=== PATIENT | female | born 1970 ===

== ENCOUNTER 2025-06-08 09:36 | Emergency (ER) | payer OTHER, SELFPAY ==
--- NOTE | 2025-06-08 | ECG_ITS ---
Test Reason : CP Blood Pressure : */* mmHG Vent. Rate : 82 BPM Atrial Rate : 82 BPM P-R Int : 170 ms QRS Dur : 82 ms QT Int : 358 ms P-R-T Axes : 35 7 11 degrees QTcB Int : 418 ms Normal sinus rhythm Normal ECG No previous ECGs available Referred By: Generic ED Physician Electronically Signed By: JAY JAY BOWSER MD
--- NOTE | ~2025-06-08 | XR_ITS ---
EXAMINATION: XR CHEST 1 VIEW HISTORY: lump on chest COMPARISON: There are no prior studies available for comparison. FINDINGS: A single PA view of the chest is submitted. The lungs are expanded and clear. There is no pleural effusion, pneumothorax, or pulmonary vascular congestion. The heart is normal in size. The bones are intact. XR/XR chest 1V IMPRESSION: Clear lungs. Electronically signed by: Giancarlo Bailey MD 06/08/2025 10:40 AM EDT
[2025-06-08 10:05] VITALS: BP 159/82; PULSE 90; RESP 20; TEMP 37; O2SAT 98; BMI 27.6
--- NOTE | 2025-06-08 10:13 | ED_ITS ---
HPI - General Adult General Chief complaint: General Medical Stated complaint: Chest pain, lower back pain Time Seen by Provider: 06/08/25 10:51 Source: patient Mode of arrival: ambulatory Limitations: no limitations History of Present Illness ED Provider: Fredy Ambriz HPI narrative: 54 yold male with pmh of HTN presents to the ED for left upper chest dime sized mass that has been present for months. patient denies any breast swelling, nipple discharge, fever, chills, redness, pleurisy, weight loss, night sweats, chest pain, fever, or chills. Related Data Previous Rx's ?Medication ?Instructions ?Recorded naproxen 500 mg tablet 500 mg PO BID PRN pain #14 t abs 06/08/25 Allergies Allergy/AdvReac Type Severity Reaction Status Date / Time coconut Allergy Anaphylaxis Verified 06/08/25 10:06 Review of Systems 2 Review of Systems: left chest wall mass Yes all other systems are reviewed and are negative Physical Exam ED Vital Signs: Vital Signs - 24 hr 06/08/25 10:05 Temperature 98.6 F Pulse Rate 90 Respiratory Rate 20 Blood Pressure 159/82 H Pulse Oximetry 98 Oxygen Delivery Method Room Air BMI result Body Mass Index 27.6 Const General: cooperative, healthy appearing, comfortable, no acute distress, well developed, alert, awake and Physically active Orientation/consciousness: patient oriented x3 HENMT Head: Yes normal to inspection, Yes No palpable skull fracture present, Yes normocephalic and Yes atraumatic Eyes General: appearance normal, both eyes and all related structures Neck Neck: Yes normal visual inspection, Yes full ROM, Yes no lymphadenopathy, Yes no meningeal signs, Yes trachea midline, Yes supple, No anterior neck swelling and No tender Chest Chest/axillae images: 2 1. tender dime sized mass that is non erythamatous or fluctulant. negative for pus discharge, foul odor, redness, rash, lesions, ecchymosis, or deformities. Breast normal. negative for breast swelling, redness, nipple discharge, mass, fluctance, or axillary lympnodes. Resp Effort & Inspection: normal respiratory effort and able to speak in complete sentences Auscultation: clear to auscultation bilaterally Cardio Jugular venous distension: no JVD Heart sounds: S1 normal heart sound present and S2 normal heart sound present GI Inspection: Yes normal to inspection Palpation (GI): Soft to palpation, not firm, nontender, no guarding and not rigid General: Yes no CVA tenderness Back/Spine/Pelvis Back: no CVA tenderness and No back tenderness Skin General skin exam: no rashes or lesions noted, elasticity normal and turgor normal Neuro General: patient oriented x3, gait normal, tone normal, moves all extremities, Normal light touch and pain sensation, no meningeal signs, no focal motor deficits and CN's II-XI intact bilaterally Extrem General: Yes normal to inspection, Yes full ROM and Yes capillary refill normal Psych Appearance: grossly normal, well kempt and not disheveled Course Course Course Narrative: RME: 54 yold female presents to the ED lump on left chest/breast pain and putting vix on the site thinking it will go away. Patient states no shortness of breath. EKG was ordered by nurse. CHest xray ordered Medical Decision Making Medical Decision Making [facility] Narrative: 54-year-old female presents to the ED for small lump on left upper chest the size of a dime that is slightly tender. Negative for erythema, pus discharge, foul odor, or fluctuance. Rest of chest exam benign. Rest of left breast exam negative for any swelling, redness, nipple discharge or palpable mass. Negative for any palpable axillary lymph nodes. Right chest breasts normal. EKG negative STEMI non diagnostic. Chest x-ray negative for any obvious mass in the lungs. Labs troponin negative. Patient to follow up with breast surgeon surgery and primary care. Not suspecting SD, PE, CHF, Abscess, Pneumonia, or any life treathening etiology. Differential Diagnosis Differential Diagnoses: The differential diagnosis associated with the presentation includes (Breast abscess, pneumonia, SD) Admission/Observation Consideration of admission/observation: Escalation of care including admission/observation considered Lab Data [facility] Lab Attestation statement: I reviewed the patient's lab results. 06/08/25 10:58 06/08/25 10:58 Labs: Lab Results 06/08/25 Range/Units 10:58 WBC 6.3 (4.8-10.8) X10*3/uL RBC 4.51 (4.20-5.50) X10*6/uL Hgb 13.7 (12.0-16.0) g/dl Hct 40.5 (37.0-47.0) % MCV 89.8 (80.0-98.0) fL MCH 30.4 (27.0-33.0) pg MCHC 33.8 (31.0-35.0) g/dl RDW 13.4 (11.0-16.0) % Plt Count 262 (160-400) X10*3/uL MPV 11.2 (9.4-12.3) fL Immature Gran % (Auto) 0.2 (0.0-0.4) % Neut % (Auto) 42.8 L (45-73) % Lymph % (Auto) 42.0 H (20-40) % Beaver % (Auto) 5.3 (2-11) % Eos % (Auto) 9.1 H (0-4) % Baso % (Auto) 0.6 (0-2) % Lymph # (Auto) 2.6 (1.2-4.9) X10*3/uL Beaver # (Auto) 0.3 (0.1-1.2) X10*3/uL Eos # (Auto) 0.6 H (0.0-0.4) X10*3/uL Baso # (Auto) 0.0 (0.0-0.2) X10*3/uL Abs Immat Gran (auto) 0.01 (0.00-0.03) X10*3/uL Absolute Neuts (auto) 2.7 (2.0-8.3) x10*3/uL Absolute Nucleated RBC 0.000 (0.0-0.012) X10*3/uL Nucleated RBC % (auto) 0.0 (0.0-0.2) /100WBC Sodium 143 (135-145) mmol/L Potassium 4.7 (3.3-5.1) mmol/L Chloride 108 (96-108) mmol/L Carbon Dioxide 26 (22-29) mmol/L Anion Gap 14 (12-20) BUN 15 (9-16) mg/dL Creatinine 0.79 (0.5-1.4) mg/dL Estim Creat Clear Calc 92.7 Estimated GFR > 60 Random Glucose 118 H (60-115) mg/dL Calcium 9.3 (8.4-10.2) mg/dL Total Bilirubin 0.5 (0.0-1.0) mg/dL AST 25 (5-31) U/L ALT 27 (0-31) U/L Alkaline Phosphatase 75 (39-117) U/L Troponin I High Sens < 2.7 (<3.5-17.0) ng/L Total Protein 7.9 (6.5-8.0) g/dL Albumin 4.6 (3.5-5.0) g/dL Independent Interpretation I performed an independent interpretation of an: EKG (Nondiagnostic) Independent Historian Clinical information obtained from an independent historian. History obtained from or confirmed by: Other (patient) Prescription Management I considered prescription management with: Pain Medication Discharge Plan Discharge Clinical Impression: Chest wall pain, Lipoma of anterior chest wall, Mass of soft tissue of chest Patient Disposition: Home, Self-Care Instructions: Chest Pain (ED), Chest Wall Pain (ED), Lipoma (ED), Soft Tissue Mass (ED) Additional Instructions: You will need follow-up with primary care provider, surgeon, and woman health. Return to the ED immediately for any worsening increased size of small lump, pain, redness, pus discharge, breast swelling, nipple discharge, redness, axillary lumps, weight loss, fever, chills, shortness of breath, or any other concerning symptoms. Your labs EKG chest x-ray came back reassuring. Prescriptions: New naproxen 500 mg tablet 500 mg PO BID PRN (Reason: pain) Qty: 14 0RF Referrals: [facility] [place] General Surgeons [Provider Group, General Surgery] - 2 days Referral Note: Anterior chest wall mass. Lipoma? Breast evaluation Clinical Impression: Mass of soft tissue of chest; Chest wall pain; Lipoma of anterior chest wall [facility] [place] Women's Services [Provider Group, LEAD DESIGNER] - 2 days Referral Note: Breast evaluation. Chest wall mass? Clinical Impression: Mass of soft tissue of chest; Lipoma of anterior chest wall Group,[facility] [Primary Care Provider, Primary Care] - 2 days Referral Note: Upper left chest wall soft tender mass. Clinical Impression: Chest wall pain Stand Alone Forms: Work/School Release Interventions: ED Discharge Assessment Last Done: 06/08/25 12:41 Discharge Date/Time: 06/08/25 12:43 Print Language: Mauritanian
[2025-06-08 11:01] LABS: MANUAL DIFF FLAG NO
[2025-06-08 11:02] LABS: Hematocrit 40.5 % (37.0-47.0); Hemoglobin 13.7 g/dl (12.0-16.0); Imm Gran Abs Auto 0.01 X10*3/uL (0.00-0.03); Imm Gran Pct Auto 0.2 % (0.0-0.4); Lymphocytes Absolute Auto 2.6 X10*3/uL (1.2-4.9); Mean Corpuscular HGB Conc 33.8 g/dl (31.0-35.0); Mean Corpuscular Hemoglobin 30.4 pg (27.0-33.0); Mean Corpuscular Volume 89.8 fL (80.0-98.0); NRBC Abs Auto 0.000 X10*3/uL (0.0-0.012); NRBC Pct Auto 0.0 /100WBC (0.0-0.2); Platelet Count 262 X10*3/uL (160-400); Red Blood Count 4.51 X10*6/uL (4.20-5.50); White Blood Count 6.3 X10*3/uL (4.8-10.8)
[2025-06-08 11:16] LABS: Alanine Aminotransferase 27 U/L (0-31); Albumin Level 4.6 g/dL (3.5-5.0); Alkaline Phosphatase 75 U/L (39-117); Anion Gap 14 (12-20); Aspartate Amino Transferase 25 U/L (5-31); Blood Urea Nitrogen 15 mg/dL (9-16); Calcium 9.3 mg/dL (8.4-10.2); Carbon Dioxide 26 mmol/L (22-29); Chloride 108 mmol/L (96-108); Creatinine Clr Calc Pharmacy 92.7; Estimated Glomerular Filt Rate > 60; Potassium 4.7 mmol/L (3.3-5.1); Sodium 143 mmol/L (135-145); Total Protein 7.9 g/dL (6.5-8.0)
[2025-06-08 11:23] LABS: Troponin-I High Sensitivity < 2.7 ng/L (<3.5-17.0)
[2025-06-08 12:41] VITALS: BP 159/82; PULSE 90; RESP 20; TEMP 37; O2SAT 98
--- OUTSIDE RECORDS SUMMARY | 2025-06-08 13:46 | XMS_ITS | Clinical Summary ---
Author Organization [facility] Address [address] [place] [address] Care Team Providers Care Equities Analyst Name Role Phone Unavailable Primary Care Provider Unavailabl e Allergies No known active allergies Medications Medication Sig Dispensed Refills Start Date End Date Status diazePAM (VALIUM) tablet 5 mg Take 1 tablet (5 mg total) by mouth once as needed for anxiety (for 30 minutes prior to procedure) for up to 1 dose. 1 tablet 0 09/25/2021 Active Family History Medical History Relation Name Comments No Sig Med Hx Father No Sig Med Hx Mother Relation Name Status Comments Father Mother Social History Tobacco Use Types Packs/Day Years Used Date Smoking Tobacco: Former Smokeless Tobacco: Never Alcohol Use Standard Drinks/Week Comments Not Currently 0 (1 standard drink = 0.6 oz pur e alcohol) Sex and Gender Information Value Date Recorded Sex Assigned at Not on file Gender Identity Not on file Sexual Orientation Not on file Job Start Date Occupation Industry Not on file Not on file Not on file Last Filed Vital Signs Vital Sign Reading Time Taken Comments Blood Pressure 128/88 09/25/2021 9:26 AM EST Pulse 98 09/25/2021 9:26 AM EST Temperature 36.7 C (98 F) 09/25/2021 9:26 AM EST Respiratory Rate - - Oxygen Saturation 100% 09/25/2021 9:26 AM EST Inhaled Oxygen Concentration - - Weight - - Height 170.2 cm (5' 7 ) 09/25/2021 10:36 AM EST Body Mass Index - - Plan of Treatment Health Maintenance Due Date Last Done Comments Hepatitis B Vaccines (1 of 3 - 3-dose series) 1971 Hepatitis C Screening 1971 Depression Screening 1983 Preventative Health Evaluation 1989 Cervical Cancer Screening (Pap Smear) 1992 Colon Cancer Screening (Colonoscopy) 2016 Breast Cancer Screening (Mammogram) 2021 Shingrix-Zoster Vaccine (1 o f 2) 2021 COVID-19 Vaccine (3 - 2024-2 6 season) 2025 02/09/2021, 01/19/2021 Influenza Vaccine (#1) 2025 06/23/2019 DTap / Tdap / Td (2 - Td or Tdap) 05/27/2028 05/27/2018 Pneumococcal Vaccine Aged Out No long er eligible based on patient's age to complete this topic RSV Ped < 20 months Aged Out No longe r eligible based on patient's age to complete this topic
--- OUTSIDE RECORDS SUMMARY | 2025-06-08 13:46 | XMS_ITS | Clinical Summary ---
Author Organization [facility] Address [address] [place] [address] Phone Care Team Providers Care Inventory Control Supervisor Name Role Phone Massiel Hernandez MD Primary Care Provider Allergies Active Allergy Reactions Criticality Noted Date Comments Coconut 11/14/2021 Coconut (Cocos Nucifera) Allergy Skin Test Hives Other Runny nose 11/14/2017 Seasonal Runny nose/rhinitis Medications ARIPiprazole (ABILIFY) 10 mg tablet Take 10 mg by mouth daily. Active busPIRone (BUSPAR) 10 mg tablet Take 1 Tablet by mouth daily. 07/18/20 22 Active DULoxetine (CYMBALTA) [address] capsule Take 1 capsule (60 mg total) by mouth 1 (one) time each day. Per psych 12/17/19 19 Active EPINEPHrine (EpiPen 2-Yusef) 0.3 mg/0.3 mL injection INJECT 1 PEN INJECTOR SINGLE DOSE NEEDED 09/25/19 24 Active aluminum-magnes ium hydroxide 200-200 mg/5 mL suspension Take 10 mL by mouth every 6 hours as needed for Indigestion. 02/26/20 24 Active pantoprazole (PROTONIX) 40 mg EC tablet Take 1 Tablet by mouth 2 times daily (before meals). Take on an empty stomach, wait 30 mins and then eat to activate the medication before breakfast and supper 12/03/19 24 Active miscellaneous medical supply misc Respiratory Therapy Supplies (Adult Mask Large) [facility] [place] by Does not apply route continuous. 05/20/20 23 Active zolpidem (AMBIEN) 10 mg tablet Take 1 Tablet by mouth at bedtime as needed for Insomnia. Per psych for insomnia 07/11/20 23 Active estradioL (CLIMARA) 0.05 mg/[address] 1 patch on the skin every 14 (fourteen) days. Active docusate calcium (SURFAK) 240 mg capsule Take 1 capsule (240 mg total) by mouth 1 (one) time each day. 90 capsule 1 08/11/20 24 Active cyclobenzaprine (FLEXERIL) 10 mg tabletIndicatio ns:Low back pain, unspecified back pain laterality, unspecified chronicity, unspecified whether sciatica present Take 1 tablet (10 mg total) by mouth 2 (two) times a day if needed for muscle spasms for up to 5 days. 10 tablet 12/25/19 25 Active fluticasone propionate (FLONASE) 50 mcg/actuation nasal spray ADMINISTER 1 SPRAY INTO EACH NOSTRIL 1 (ONE) TIME EACH DAY. BEFORE 1ST USE & CLEAN TIP/REPLACE CAP AFTER 32 mL 04/06/20 25 Active simethicone 250 mg capsuleIndicati ons:Gastroesoph ageal reflux disease, unspecified whether esophagitis present Take three times daily as needed for indigestion 90 capsule 1 04/13/20 25 Active gabapentin (NEURONTIN) 600 mg tablet Take 1 tablet (600 mg total) by mouth 2 (two) times a day. 180 tablet 1 04/13/20 25 Active ibuprofen (ADVIL,MOTRIN) 600 mg tablet Take 1 tablet (600 mg total) by mouth every 6 (six) hours if needed for moderate pain. for pain 90 tablet 1 04/13/20 25 Active diclofenac (VOLTAREN) 1 % topical gel APPLY 1 GRAM TOPICALLY 2 TIMES DAILY. 100 g 05/31/20 25 Active sucralfate (CARAFATE) 1 gram tablet Take 1 tablet (1 g total) by mouth 4 (four) times a day (before meals and nightly). Take 1 hour before meals and at bedtime 360 each 03/02/20 25 025 diclofenac (VOLTAREN) 1 % topical gel APPLY 1 GRAM TOPICALLY 2 TIMES DAILY. 100 g 04/12/20 25 025 Discontinued Active Problems Problem Noted Date Diagnosed Date Swallowing difficulty 05/29/2024 Throat pain 05/29/2024 Prediabetes 09/19/2021 Venous insufficiency of left lower extremity Overview (05/29/2024): Dr Blanco Grade I hemorrhoids 10/14/2019 Spondylosis 05/13/2019 Multiple lipomas 12/18/2018 Hyperopia with astigmatism and presbyopia, bilat eral 05/28/2018 GERD (gastroesophageal reflux disease) 7 Overview (05/29/2024): With erosive esophagitis, chronic gastritis Duodenal erosion 10/04 NSAIDs Neck arthritis 06/14/2017 Gallstones 06/05/2017 Overview (05/29/2024): 06/18- Gen surgery could not contact, letter sent. Auditory hallucination 05/29/2017 Visual hallucination 05/29/2017 Anxiety 12/07/2016 Carpal tunnel syndrome, bilateral 12/07/2016 Overview (05/29/2024): 2016 EMG from [facility]: Mild focal neuropathy at the left wrist suggestive of carpal tunnel syndrome. The right nerve studies were normal. Surgery planned for left CTR 01/18 Depression 12/07/2016 Overview (05/29/2024): Follows with Janienagustina [facility] Fibromyalgia 12/07/2016 Subcutaneous nodules 12/07/2016 Overview (05/29/2024): Lower extremities multiple, eval by vascular no varicose veins 07/2016 Encounters Date Type Department Care Team Description 05/31/2025 11:00 AM EDT Office Visit Adult Medicine [facility] [address] [place] [phone] Massiel Hernandez MD Breast pain, left (Primary Dx) 04/13/2025 2:30 PM EDT Office Visit Adult Medicine [facility] [address] [place] [phone] Saleem Mondragon PA Fibromyalgia (Primary Dx); Gastroesophageal reflux disease, unspecified whether esophagitis present; Anxiety; Right ankle pain, unspecified chronicity from Last 3 Months Immunizations Immunization Administration Dates Next Due Influenza Quadravalent, MDCK , 0.5ml, preservative free (Flucelvax) 6mo and older 06/23/2019 Pfizer SARS-CoV-2 COVID-19, mRNA, LNP-S, preservative free 02/09/2021,01/19/2021 Tdap Tetanus diptheria acell ular pertussis (Boostrix; Adacel) 7yo and older 05/27/2018 Surgical History Surgery Date Site/Laterality Comments CERVICAL BIOPSY W/ LOOP ELEC TRODE EXCISION ? 2011 PROCEDURE: HISTORICAL CONE BIOPSY; COMMENT: cervical cancer? cone biopsy? in [place] BREAST BIOPSY PROCEDURE: BX BREAST; PERC NEEDLE CORE W/IMAG GUID; COMMENT: rt COLONOSCOPY 10/14/2019 PROCEDURE: HISTORICAL COLONOSCOPY; COMMENT: internal hemorrhoids UPPER GASTROINTESTINAL ENDOSCOPY 10/14/2019 PROCEDURE: UPPER GI ENDOSCOPY/EXAM; COMMENT: negative/biopsy pending HYSTERECTOMY 05/2020 PROCEDURE: HISTORICAL TOTAL HYSTERECTOMY WITH BSO HERNIA REPAIR 05/2020 PROCEDURE: REPAIR UMBILICAL HERNIA; COMMENT: with cystscopy ESOPHAGOGASTRODUODENOSCOPY 01/15/2022 PROCEDURE: NV EGD TRANSORAL BIOPSY SINGLE/MULTIPLE; COMMENT: retained food otherwise normal, random biopsy with minimal chronic gastritis OTHER SURGICAL HISTORY Bilateral PROCEDURE: NV LIGJ DIVJ & STRIPPING SHORT SAPHENOUS VEIN; COMMENT: CHOLECYSTECTOMY PROCEDURE: HISTORICAL CHOLECYSTECTOMY CHOLECYSTECTOMY PROCEDURE: NV LAPAROSCOPY SURG CHOLECYSTECTOMY Medical History Medical History Date Comments Carpal tunnel syndrome, bilateral DX:Carpal tunnel syndrome, bilateral Depression DX:Depression Fibromyalgia DX:Fibromyalgia Anxiety DX:Anxiety History of gestational diabetes DX:History of gestational diabetes History of ovarian cyst 05/27/2016 DX:Histo ry of ovarian cyst Subcutaneous nodules 07/2016 DX:Subcutan eous nodules; COMMENT: Lower extremities multiple, eval by vascular no varicose veins 07/2016 History of breast lump 12/2015 DX:Histor y of breast lump; COMMENT: R, ref to breast center suspect enlarging cyst History of syncope 08/2015 DX:History of syncope; COMMENT: hold off further workup, suspect more psych related. GERD (gastroesophageal reflux disease) 7 DX:GERD (gastroesophageal reflux disease) Swallowing difficulty DX:Swallow ing difficulty Throat pain DX:Throat pain Cervical spondylosis without myelopathy DX:Cervical spondylosis with out myelopathy Epigastric pain DX:Epigastric pa in Right upper quadrant pain DX:Rig ht upper quadrant pain GERD (gastroesophageal reflux disease) DX:GERD (gastroesophageal reflux disease) Abdominal pain DX:Abdominal loraine n Right upper quadrant pain DX:Rig ht upper quadrant pain Abdominal discomfort DX:Abdomina l discomfort Right upper quadrant pain DX:Rig ht upper quadrant pain Blood in stool DX:Blood in stoo l Family History Medical History Relation Name Comments Hypertension Brother Arthritis Mother Diabetes Mother HTN, asthma, he art failure at 58 Mental illness Sister everything- bipolar, schizophrenia, anxiety, depression Blindness Neg Hx Cataracts Neg Hx Glaucoma Neg Hx Macular degeneration Neg Hx Strabismus Neg Hx Relation Name Status Comments Brother Mother Sister Social History Tobacco Use Types Packs/Day Years Used Date Smoking Tobacco: Former Smokeless Tobacco: Never Tobacco Cessation:Counseling Given: Not Answered Alcohol Use Standard Drinks/Week Comments Yes 0 (1 standard drink = 0.6 oz pur e alcohol) Interpersonal Safety Answer Date Record ed Physical Abuse Unrecognized value 07/29/2024 Verbal Abuse Unrecognized value 07/29/2024 Comments No Sex and Gender Information Value Date Recorded Sex Assigned at Female 11/03/2024 11:12 AM EST Legal Sex Female 2:26 AM EST Gender Identity Female 11/03/2024 11:12 AM EST Sexual Orientation Straight 11/03/2024 11 :12 AM EST Obstetrics History Para Term AB IAB SAB Ectopic Multiple Livin g Live Births 2 2 2 2 Date Outcome GA Total Labor Labor/2nd/3rd Weight Sex Type Anes PTL Anya A1 A5 Name Clin Term Term Last Filed Vital Signs Vital Sign Reading Time Taken Comments Blood Pressure 104/71 05/31/2025 10:56 AM EDT Pulse 80 05/31/2025 10:56 AM EDT Temperature 35.9 C (96.7 F) 05/31/2025 10:56 AM EDT Respiratory Rate 16 05/31/2025 10:56 AM EDT Oxygen Saturation 98% 03/02/2025 9:20 AM EDT Inhaled Oxygen Concentration - - Weight 85.3 kg (188 lb) 05/31/2025 10:56 AM EDT Height 167 cm (5' 5.75 ) 05/31/2025 10:56 AM EDT Body Mass Index 30.58 05/31/2025 10:56 AM EDT Plan of Treatment Upcoming Encounters Date Type Department Care Team (Late st Contact Info) Description 07/01/2025 3:00 PM EDT Appointment Radiology Department - [address] [phone] 07/01/2025 3:20 PM EDT Appointment Radiology Department - [address] [phone] 08/16/2025 11:00 AM EST Office Visit Adult Medicine - [place] [address] [place] [phone] Massiel Hernandez MD [address] [place] [address] 11/16/2025 8:40 AM EDT Office Visit Gastroenterology - [place] [address] [facility] 175 [facility] [address] [place] [phone] Maddi Riley NP 175 [facility] [address] [place] [address] 12/22/2025 9:00 AM EDT Appointment Radiology Department - [address] [phone] Health Maintenance Due Date Last Done Comments Hepatitis B Vaccines (1 of 3 - 19+ 3-dose series) 1990 Pneumococcal Vaccine: 50+ Years (1 of 1 - PCV) 2021 Cervical Cancer Screening: Pap Smear 11/24/2021 11/24/2018 Medicare Annual Wellness Visit 08/10/2022 Social Influencers of Health Screening 08/10/2022 Depression Screening 09/02/2024 12/02/2023 Zoster Vaccines (2 of 2) 12/07/2024 10/12/2024 COVID-19 Vaccine (3 - season) 2025 02/09/2021, 01/19/2021 Influenza Vaccine (#1) 2025 06/23/2019 Breast Cancer Screening 12/16/2026 12/17/19 25, 12/31/2023, 12/31/2023, Additional history exists DTaP,Tdap,and Td Vaccines (2 - Td or Tdap) 05/27/2028 05/27/2018 Cholesterol Screening (Lipid Panel) 07/10/2029 07/10/2024, 11/23/2022 Colorectal Cancer Screening: Colonoscopy 07/29/2034 07/29/2024, 10/14/2019 RSV Immunization Adult Patients (1 - 1-dose 75+ series) 2046 HIV Screening Completed 04/01/2017 Hepatitis C Screening Completed 04/01/2017 HIB Vaccines Aged Out No longer eligi ble based on patient's age to complete this topic HPV Vaccines Aged Out No longer eligi ble based on patient's age to complete this topic Hepatitis A Vaccines Aged Out No long er eligible based on patient's age to complete this topic IPV Vaccines Aged Out No longer eligi ble based on patient's age to complete this topic MMR Vaccines Aged Out No longer eligi ble based on patient's age to complete this topic Meningococcal ACWY Vaccine Aged Out N o longer eligible based on patient's age to complete this topic Meningococcal B Vaccine Aged Out No l onger eligible based on patient's age to complete this topic RSV Immunization Patients Under 20 months Aged Out No longer eligible based on patient's age to complete this topic Varicella Vaccines Aged Out No longer eligible based on patient's age to complete this topic Procedures Procedure Name Priority Date/Time Associated Diagnosis Comments HELICOBACTER PYLORI ANTIGEN, STOOL Routine 03/31/2025 11:09 AM EDT Postprandial abdominal pain in right upper quadrant MG MAMMO DIGITAL SCREENING W ROLANDO BILAT Routine 12/16/2024 9:11 AM EDT Encounter for screening mammogram for breast cancer COLONOSCOPY Routine 07/29/2024 8:10 AM EST Colon cancer screening LIPID PANEL WITH REFLEX TO DIRECT LDL Routine 07/10/2024 10:02 AM EST Fibromyalgia Depression, unspecified depression type Insomnia, unspecified type Falls frequently Urinary incontinence, unspecified type Prediabetes HM DEPRESSION SCREENING Routine 12/02/2023 PAP SMEAR Routine 11/24/2018 HEPATITIS C SCREENING Routine 04/01/2017 HIV SCREENING Routine 04/01/2017 from Last 3 Months or Most Recently Relevant to Health Maintenance Results * Helicobacter pylori antigen, stool (03/31/2025 11:09 AM EDT) Helicobacter Pylori Ag Not detected Not detected 04/06/2025 4:21 PM EDT [facility] Comment: This test was performed at [facility] using a chemiluminescent immunoassay intended for the qualitative determination of helicobacter pylori (H. pylori) antigen in human stool. The test is an aid in the diagnosis of patients suspected of H. pylori infection and to measure post therapy response from patients. Assay results should be used in conjunction with other clinical and laboratory data to assist the clinician in making individual patient management decisions. A negative test result does not preclude the possibility of the presence of H. pylori antigen in the specimen, which may occur if the level of antigen is below the detection limit of the test. Antimicrobials, proton pump inhibitors, and bismuth preparations are known to suppress H. pylori and, if ingested, may give a false negative result. In these cases a new fecal sample should be collected and tested 14 days after treatment has stopped. Positive results from patients that have used antibiotics, PPIs, or bismuth compounds in the 14 days prior to fecal sample collection are still considered accurate. This assay has not been evaluated in a pediatric population. This test has been approved as an in vitro diagnostic by the [place] Food and Drug Administration. Test performed at [facility], [address], [place] [address] Geeta Mason MD, PhD - Data Modeling Architect Stool Rectum structure / Unknown Non-blood Collection / Unknown 03/31/2025 11:09 AM EDT 03/31/2025 11:09 AM EDT Maddi Riley NP LAB BODY FLUIDS AND STOOLS QUANG HUGGINS Final Result [facility] [address] [place] [address] * MG Mammo Digital Screening w Rolando bilat (12/16/2024 9:11 AM EDT) Anatomical Region Laterality Modality Breast Bilateral Mammography 12/16/2024 11:2 4 AM EDT Impressions 12/16/2024 11:28 AM EDT BILATERAL BREASTS: Benign, no evidence of malignancy. Normal interval follow-up is recommended in 12 months. BREAST DENSITY: C - The breasts are heterogeneously dense which may obscure small masses. BI-RADS CATEGORY: 2 - BENIGN RECOMMENDATION: Screening bilateral mammogram is recommended in 1 year. Mammo Location: [facility], [address] [place] [address], [id number], . -------- FINAL REPORT -------- Dictated By: Reyes Wharton Dictated Date: 12/16/2024 11:24 ET Assigned Physician: Reyes Wharton Reviewed and Electronically Signed By: Reyes Wharton Signed Date: 12/16/2024 11:28 ET Workstation ID: [id number] Transcribed By: Self Edit Transcribed Date: 12/16/2024 11:24 ET Narrative 12/16/2024 11:28 AM EDT STUDY: Bilateral screening mammography with tomosynthesis and CAD TECHNIQUE: Bilateral full-field digital screening mammography is obtained and read in conjunction with computer-aided detection. Tomosynthesis as well as 2-D C view imaging were obtained. COMPARISON: Comparison made to multiple prior, most recent December 04, 2023, and most remote November 24, 2015. RIGHT BREAST: Tissue marker from previous needle core biopsy. No significant masses, suspicious calcifications or other abnormalities are seen. LEFT BREAST: No significant masses, suspicious calcifications or other abnormalities are seen. Procedure Note Reyes Wharton MD - 12/16/2024 STUDY: Bilateral screening mammography with tomosynthesis and CAD TECHNIQUE: Bilateral full-field digital screening mammography is obtainedand read in conjunction with computer-aided detection. Tomosynthesis aswell as 2-D C view imaging were obtained. COMPARISON: Comparison made to multiple prior, most recent December 04, 2023,and most remote November 24, 2015. RIGHT BREAST: Tissue marker from previous needle core biopsy. Nosignificant masses, suspicious calcifications or other abnormalities areseen. LEFT BREAST: No significant masses, suspicious calcifications or otherabnormalities are seen. IMPRESSION: BILATERAL BREASTS: Benign, no evidence of malignancy. Normal intervalfollow-up is recommended in 12 months. BREAST DENSITY: C - The breasts are heterogeneously dense which mayobscure small masses. BI-RADS CATEGORY: 2 - BENIGN RECOMMENDATION: Screening bilateral mammogram is recommended in 1 year. Mammo Location: [facility], [address] [place] [address], [id number], . -------- FINAL REPORT -------- Dictated By: Reyes Wharton Dictated Date: 12/16/2024 11:24 ET Assigned Physician: Reyes Wharton Reviewed and Electronically Signed By: Reyes Wharton Signed Date: 12/16/2024 11:28 ET Workstation ID: [id number] Transcribed By: Self Edit Transcribed Date: 12/16/2024 11:24 ET Massiel Hernandez MD IM BI PROCEDURES Amada l Result * COLONOSCOPY Anesthesia - MAC; [facility] ENDOSCOPY (07/29/2024 8:10 AM EST) Anatomical Region Laterality Modality Other 07/29/2024 7:52 AM EST Impressions 07/29/2024 8:12 AM EST - The entire examined colon is normal. - No specimens collected. Recommendation: - Repeat colonoscopy in 10 years for screening purposes. Narrative 07/29/2024 8:12 AM EST [facility] GI Patient Name: Paula Degroot Procedure Date: 07/29/2024 7:52 AM Date of : 1970 Age: 53 Gender: Female Note Status: Finalized Attending MD: Tariq Madden MD, Procedure Date No Time: 07/29/2024 Procedure: Colonoscopy Indications: Screening for colorectal malignant neoplasm Providers: Tariq Madden MD Referring MD: Tariq Madden MD Medicines: Propofol per Anesthesia Complications: No immediate complications. Estimated Blood Loss: Estimated blood loss: none. Procedure: Pre-Anesthesia Assessment: - ASA Grade Assessment: II - A patient with mild systemic disease. After I obtained informed consent, the scope was passed under direct vision. Throughout the procedure, the patient's blood pressure, pulse, and oxygen saturations were monitored continuously.The Colonoscope was introduced through the anus and advanced to the cecum, identified by appendiceal orifice and ileocecal valve. The colonoscopy was performed without difficulty. The patient tolerated the procedure well. The quality of the bowel preparation was adequate. Findings: The perianal and digital rectal examinations were normal. The entire examined colon appeared normal. Procedure Code(s): --- Professional --- G0121, Colorectal cancer screening; colonoscopy on individual not meeting criteria for high risk Diagnosis Code(s): --- Professional --- Z12.11, Encounter for screening for malignant neoplasm of colon CPT copyright 2020 [employer]. All rights reserved. The codes documented in this report are preliminary and upon certified procedural coder review may be revised to meet current compliance requirements. Tariq Madden MD 07/29/2024 8:12:03 AM This report has been signed electronically.Tariq Madden MD Number of Addenda: 0 Note Initiated On: 07/29/2024 7:52 AM Scope In: Scope Out: Endoscopy Department at [facility] - [address] [place] [phone] Procedure Note Tariq Madden MD - 07/29/2024 [facility] GI Patient Name: Paula Degroot Procedure Date: 07/29/2024 7:52 AM Date of : 1970 Age: 53 Gender: Female Note Status: Finalized Attending MD: Tariq Madden MD, Procedure Date No Time: 07/29/2024 Procedure: Colonoscopy Indications: Screening for colorectal malignant neoplasm Providers: Tariq Madden MD Referring MD: Tariq Madden MD Medicines: Propofol per Anesthesia Complications: No immediate complications. Estimated Blood Loss: Estimated blood loss: none. Procedure: Pre-Anesthesia Assessment: - ASA Grade Assessment: II - A patient with mild systemic disease. After I obtained informed consent, the scope was passed under direct vision. Throughout theprocedure, the patient's blood pressure, pulse, and oxygen saturations were monitored continuously.The Colonoscope was introduced through the anus and advanced to the cecum, identified by appendiceal orifice and ileocecal valve. The colonoscopy was performed without difficulty. The patient tolerated the procedure well. The quality of the bowel preparation was adequate. Findings: The perianal and digital rectal examinations were normal. The entire examined colon appeared normal. Procedure Code(s): --- Professional --- G0121, Colorectal cancer screening; colonoscopy on individual not meeting criteria for high risk Diagnosis Code(s): --- Professional --- Z12.11, Encounter for screening for malignantneoplasm of colon CPT copyright 2020 [employer]. All rights reserved. The codes documented in this report are preliminary and upon certified procedural coder reviewmay be revised to meet current compliance requirements. Tariq Madden MD 07/29/2024 8:12:03 AM This report has been signed electronically.Tariq Madden MD Number of Addenda: 0 Note Initiated On: 07/29/2024 7:52 AM Scope In: Scope Out: Endoscopy Department at [facility] - [address] [place] [phone] IMPRESSION: - The entire examined colon is normal. - No specimens collected. Recommendation: - Repeat colonoscopy in 10 years for screening purposes. us Tariq Madden MD GI~PROCEDURE ORDERABLES Final Re sult * (ABNORMAL) Lipid panel with reflex to direct LDL (07/10/2024 10:02 AM EST) Cholesterol 201(H) 0 - 200 mg/dL LAB CHEMISTRY METHOD 07/10/2024 12:54 PM EST [facility] Triglycerides 191(H) 0 - 150 mg/dL LAB CHEMISTRY METHOD 07/10/2024 12:[address] [facility] HDL 47 >=40 mg/dL LAB CHEMISTRY METHOD 07/10/2024 12:54 PM [facility] LDL Calculated 116(H) 0 - 100 mg/dL LAB CHEMISTRY METHOD 07/10/2024 12:54 PM [facility] VLDL Cholesterol Moris 38.2 mg/dL LAB CHEMISTRY METHOD 07/10/2024 12:54 PM [facility] Non HDL Chol. (LDL+VLDL) 154(H) <145 mg/dL LAB CHEMISTRY METHOD 07/10/2024 12:54 PM [facility] Chol/HDL Ratio 4.3 0.0 - 4.4 LAB CHEMISTRY METHOD 07/10/2024 12:54 PM [facility] Blood Venous blood specimen / Unknown Venipuncture / Unknown 07/10/2024 10:02 AM EST 07/10/2024 10:02 AM EST Massiel Hernandez MD LAB BLOOD ORDERABLES F inal Result [facility] [address] [place] [address], * Depression Screening (12/02/2023) Pathologist [facility] Depression Screening abstracted Historical Provider HEALTH MAINTENANCE Final Result * Pap Smear (11/24/2018) Pathologist [facility] Pap smear normal, abstracted Historical Provider HEALTH MAINTENANCE Final Result * HIV Screening (04/01/2017) [facility] HIV Screening abstracted Historical Provider HEALTH MAINTENANCE Final Result * Hepatitis C Screening (04/01/2017) Pathologist [facility] Hepatitis C Screening abstracted us Historical Provider HEALTH MAINTENANCE Final Result from Last 3 Months or Most Recently Relevant to Health Maintenance Insurance [employer] MED[employer]ARE Member Subscriber Plan / Payer (Ef fective 2020-Present) Name:PUALA DEGROOT Relation to Subscriber:Self Name:Paula Degroot Payer ID:[id number] Group ID:[id number] Type:Not on file Address: [place] [address] [address] [phone] Care Teams Inventory Control Supervisor Relationship Specialty Start Date End Date Massiel Hernandez MD [address] [place] [id number] PCP - General Internal Medicine 07/29/24
--- OUTSIDE RECORDS SUMMARY | 2025-06-08 13:46 | XMS_ITS ---
Author Name [facility] Organization Unknown Encounters Encounter Type Encounter Reason Primary Diagnosis Location Date Ambulatory [facility] 06/12/2024 Care Team Organization Name Specialty Phone Email Start Date End Da te [facility] 2024
--- OUTSIDE RECORDS SUMMARY | 2025-06-08 13:46 | XMS_ITS | Encounter Summary ---
Author Organization [facility] Address [address] [place] [address] Encounters * CPT with Medical [facility] at [facility] on 2025-05-27 { reasonForRequest : Pt reporting 2 days with left side breast area>notes that when she swallows, she feels a warm sensation down the throat/track , patientRe ports : , denies :[ Sudden onset of dental pain, unable to manage own secretions , Nosebleed lasting longer than one hour; unable to stop bleeding , Throat swelling/difficult swallowing , Dental pain and fever, able to maintain secretions", Sinus infection , Conjunctivitis , External Ear concerns ,"Sharp focal or diffuse abdominal pain , Vomiting blood/coffee ground material ,"Bloating, jaundice new onset with pain , Nausea and vomiting greater than 2 hours with abdominal pain , Tearing pain that radiates to back , Food Impaction ,"Vague abdominal pain greater than 24 hours , Constipation , Diarrhea no blood in stool , Nausea with or without vomiting , Inability to tolerate foods, fluids or daily medications ], chiefComplaints : Sore Throat, Abdominal Pain , pmh : Fibromyalgia, Anxiety Disorder, Depression , allergies : No Known Drug Allergies , otherAllergies : , painAssessment :&qu ot; , visitOutcome : , additionalComments : 54 y.o female complains of Sore Throat\nPatient self referring\nPatient symptoms started\nafter she eats she feelsa burning sensation in her esophagus with a burning pain under her breast that comes and goes \ndenies any radiating pain down arm or jaw\ndenies any fever or chills\ndenies lightheadedness or dizziness\ndenies any shortness of breath \ndenies any nausea ,vomiting, or diarrhea.\nTriage limited due to language barrier \nrequesting insted assessment. does not want to go to ER. \nreviewed red flags\n\n\nI provided information on the mobile health provider response time and advised the patient and/or caregiver to monitor reported signs and symptoms. I discussed the warning signs of when to seek emergency care. } Sent to a call for a pt complaining of pain. [facility] arrives on scene, pt is alert and oriented, airwayis patent. Pt has GERD and complains of chronic burning pain in esophagus and stomach, especially after eating. Pt also complains of left breast pain described as deep pain starting yesterday. Pt states she noticed a lump on left breast/chest area today at site of pain. Pt states she took Ibuprofenyesterday which relieved pain. Pt denies queen, dizziness, sob, n/v/d, abd pain, fever, or loc. Pt states she has family history BP:117/79, P:74, RR:18, SpO2:98% RA, T:98.1; Head: unremarkable; Lung sounds: clear bilaterally; Chest: hard lump on left breast; Abdomen: soft, non-tender, no distention; Back: unremarkable; Extremities: unremarkable; Skin: pink, warm, dry; 12 lead ECG: [place] [employer] [facility] [place] and pt is advised to contact PCP tomorrow for a mammogram/ultrasound. Red flags discussed. Pt has no further questions. IV_(FLUIDS_AND/OR_MEDICATION), MEDICATION_IM, ORAL_MEDICATION, EKG, POC_FLU_STREP, COVID_TEST Written by Labochema on 2025-05-27
--- OUTSIDE RECORDS SUMMARY | 2025-06-08 13:46 | XMS_ITS | Continuity of Care Document ---
Author Name [facility], Medical Address [address] [place] [id number] Organization Unknown Address [address] [place] [id number] Medications No known medications Problems No known problems
== END 2025-06-08 12:43 | disposition home or self-care (01) ==
PROVIDERS: Physician Assistant; Emergency Provider Emergency Medicine
DX: R07.89 Other chest pain (principal); D17.1 Benign lipomatous neoplasm of skin and subcutaneous tissue of trunk; M54.50 Low back pain, unspecified; Z79.899 Other long term (current) drug therapy
CPT/HCPCS: 36415; 71045; 80053; 84484; 85025; 93005; 99283

== ENCOUNTER → 2025-06-08 09:43 | Outpatient (BNV) | payer OTHER, SELFPAY | PROVIDERS: Emergency Provider Emergency Medicine; Visit Provider Internal Medicine Cardiovascular Disease | DX: R07.89 Other chest pain (principal) | CPT/HCPCS: 93010 ==

== ENCOUNTER → 2025-06-08 10:11 | Outpatient (BNV) | payer OTHER, SELFPAY | PROVIDERS: Emergency Provider Emergency Medicine; Visit Provider Radiology Diagnostic Radiology | DX: R22.2 Localized swelling, mass and lump, trunk (principal) | CPT/HCPCS: 71045 ==

== ENCOUNTER → 2025-06-17 08:35 | Outpatient (BNVA) | payer OTHER, SELFPAY | PROVIDERS: Visit Provider Surgery | DX: R22.2 Localized swelling, mass and lump, trunk (principal); R22.32 Localized swelling, mass and lump, left upper limb | CPT/HCPCS: 99202 ==

== ENCOUNTER 2025-06-17 13:03 | Outpatient (AMB) | payer OTHER, SELFPAY ==
[2025-06-17 13:03] VITALS: BMI 27.6
--- NOTE | 2025-06-17 13:03 | A.OFFVIS_ITS ---
Vital Signs 06/17/25 13:03 Height 5 ft 8 in Weight 181 lb 9.587 oz BMI 27.6 Intake Visit Reasons: Anterior chest wall mass, ? lipoma Intake Note: Patient presents for [facility] emergency department follow-up for Anterior chest wall mass, ? lipoma. Pt c/o; reports pain burning senation left chest wall mass, feels sharp pain that radiates towards nipple from the left chest wall ,reports mass left upper arm as well. Time Clock Inspector Required: Yes Time Clock Inspector Language: Adoption Worker Services: Time Clock Inspector Present Time Clock Inspector Name: Maura Information Interpreted: non-clinical & clinical Accompanied by: Self / Same As Patient Allergies coconut Allergy (Verified 06/17/25 13:08) Anaphylaxis Medication List - Last Reconciled 06/17/25 by Mario Alberto Hightower MD aripiprazole 10 mg PO DAILY buspirone 10 mg PO BID cyclobenzaprine 10 mg PO BEDTIME diclofenac sodium 1% 2 grams topical QID docusate calcium 240 mg PO DAILY duloxetine 60 mg PO DAILY epinephrine (EpiPen 2-Yusef) 0.3 mg IM Q10M PRN estradiol 1 patch transdermal QWEEK fluticasone propionate 110 mcg/actuation 1 puff inhalation Q12H gabapentin 600 mg PO BID ibuprofen 600 mg PO Q8H PRN naproxen 500 mg PO BID PRN pantoprazole 40 mg PO DAILY simethicone (Gas Relief (simethicone)) 250 mg PO DAILY PRN zolpidem 10 mg PO BEDTIME PRN HPI HPI Anterior chest wall mass, ? lipoma: Details: [age] year old female referred for a question of an anterior chest wall mass. She says that she has felt this for about a month now. She denies any increased in size. She thinks that this is causing some pain around the area all the way to the breast She denies any skin changes She says she also has a another lump on the left arm. [facility] Medical History (Updated 06/17/25 @ 13:41 by Mario Alberto Hightower MD) Subcutaneous mass Surgical History No pertinent past surgical history Social History Alcohol intake: never Patient Tobacco Use Status: Never used Tobacco Review of Systems Const Denies chills and Denies fever(s) Card Denies chest pain, Denies dyspnea and Denies dyspnea on exertion Resp Denies cough, Denies dyspnea and Denies dyspnea on exertion GI Denies hematochezia and Denies change in bowel habits Denies hematuria Musc Denies back pain and Denies limited range of motion Neuro Denies focal weakness and Denies convulsions Psych Denies depression and Denies mood swings Physical Exam Vital Signs: BMI result Body Mass Index 27.6 Const General: comfortable and no acute distress Orientation/consciousness: patient oriented x3 Neck Neck: Yes no lymphadenopathy Chest Other: She points to the anterior chest wall above the breast where she feels the lump. I am able to feel this currently Resp Auscultation: clear to auscultation bilaterally Cardio Rhythm: regular rhythm GI Palpation (GI): Soft to palpation, nontender and no guarding Neuro General: patient oriented x3 Extrem Other: Less than 1 cm subcutaneous nodule on the left upper arm consistent with a lipoma Assessment & Plan Assessment & Plan (1) Subcutaneous mass: Code(s): R22.9 - Localized swelling, mass and lump, unspecified Category: Medical Plan: She says she feels a lump on the anterior chest wall as described above. I am unable to feel this currently. I am going to order for an ultrasound of the soft tissue She also has what appears to be a lipoma on the left upper arm. I will discuss excision of this after she returns to review her ultrasound findings for the chest wall mass. She seems to understand the plan well. Coding Level of Care Code New Pt Level 3 (33986) Diagnoses Subcutaneous mass R22.9
== END 2025-06-17 13:39 | disposition home or self-care (01) ==
LOC: HO.HGS 13:03
PROVIDERS: PCP Family Medicine; Visit Provider Surgery
DX: R22.9 Localized swelling, mass and lump, unspecified (principal)
CPT/HCPCS: 99203